=== PATIENT | female | born 1955 | race Caucasian/White ===

== ENCOUNTER → 2016-09-21 | Outpatient (CLI) | payer OTHER ==
[2016-06-26 14:33] VITALS: BP 154/76
[~2016-09-21] MED LIST: ALPR0.5T6 PO; ASPI-482 PO; ASPI81TA50 PO; BYSTOLIC5 MG PO; CALC-77 PO; CALC200T3 PO; CETI10TA16 PO; CYAN10002 IM; DOXY100C2 PO; FURO-68 PO; IPRA4AER IH; KETO15CR TP; LEVO750T31 PO; LISI1TAB5 PO; MECO5000 PO; METO10TA81 PO; MOME13HF IH; MONT10TA9 PO; MULT-212 PO; NAPR220C4 PO; OXYC-244 PO; PANT40TA5 PO; POTA10CA PO; POTA10TA5 PO; PRED-220 PO; PROAIR HFA8.5 GM IH; PROAIR HFA8.5 GM INH; TIOT18CA IH
== END | disposition home or self-care (01) ==
LOC: EKG 07:51
PROVIDERS: ATTEND Internal Medicine Cardiovascular Disease
DX: R00.2 Palpitations (principal)
CPT/HCPCS: 93225

== ENCOUNTER → 2017-06-24 | Outpatient (CLI) | payer OTHER | END | disposition home or self-care (01) | LOC: ECHO 13:54 | DX: Z01.818 Encounter for other preprocedural examination (principal); I08.2 Rheumatic disorders of both aortic and tricuspid valves; I31.3 Pericardial effusion (noninflammatory) | CPT/HCPCS: 93306 ==